=== PATIENT | male | born 1965 | race Caucasian/White ===

== ENCOUNTER → 2016-04-16 | Outpatient (CLI) | payer BC, OTHER ==
--- NOTE | 2016-04-16 11:27 | DIAGNOSTIC IMAGING REPORT ---
RENAL ULTRASOUND HISTORY: CVA TENDERNESS; R/O KIDNEY STONE COMPARISON: None. FINDINGS: Right kidney: 10.1 cm. No hydronephrosis. Normal corticomedullary differentiation and cortical thickness. Left kidney: 12.6 cm. No hydronephrosis. Normal corticomedullary differentiation and cortical thickness. A 6.4 x 5.8 cm renal cyst. Bladder: Not well distended. No bladder wall thickening. Hepatic steatosis. IMPRESSION: 1. No hydronephrosis. 2. A 6.4 x 5.8 cm left renal cyst. 3. Hepatic steatosis. Electronically signed by: Garry Browne M.D. 04/16/2016 11:26 AM Dictated Date/Time: 04/16/2016 11:24 AM
== END | disposition home or self-care (01) ==
LOC: C.ULTRBC 10:35
PROVIDERS: ATTEND Nurse Practitioner Family
DX: M54.9 Dorsalgia, unspecified (principal); N28.1 Cyst of kidney, acquired; K76.0 Fatty (change of) liver, not elsewhere classified

== ENCOUNTER → 2016-04-16 | Outpatient (CLI) | payer BC, OTHER ==
[~2016-04-16] MED LIST: OPTIRAY 320 IV PRN
[2016-04-16 15:17] LABS: BLOOD UREA NITROGEN 15 mg/dl (7-18)
--- NOTE | 2016-04-16 16:02 | DIAGNOSTIC IMAGING REPORT ---
CHEST CTA for PULMONARY ARTERIES CT DOSE: 715.76 mGy.cm HISTORY: Mid back pain. Assess for pulmonary embolus. TECHNIQUE: Multiaxial CT images of the chest were performed following the intravenous administration of contrast to evaluate the pulmonary arteries. Maximal intensity projection images were also obtained. COMPARISON STUDY: None. FINDINGS: There is a normal caliber thoracic aorta with no evidence for dissection. There is no evidence for pulmonary embolus. No pleural effusions. No pneumothorax. The liver and spleen are unremarkable. No mediastinal or hilar lymphadenopathy. The central airways are patent. A few tiny nodular densities along the right major fissure are of doubtful clinical significance. The lungs are otherwise clear. IMPRESSION: No evidence for pulmonary embolus. Electronically signed by: Garry Browne M.D. 04/16/2016 4:01 PM Dictated Date/Time: 04/16/2016 3:51 PM
== END | disposition home or self-care (01) ==
LOC: C.CTS 13:39
PROVIDERS: ATTEND Nurse Practitioner Family
DX: M54.9 Dorsalgia, unspecified (principal)

== ENCOUNTER → 2016-10-22 | Outpatient (CLI) | payer BC, OTHER ==
--- NOTE | 2016-10-22 11:17 | DIAGNOSTIC IMAGING REPORT ---
RENAL ULTRASOUND HISTORY: ACQUIRED RENAL CYST OF LEFT KIDNEY COMPARISON: Renal ultrasound 04/16/2016. FINDINGS: Right kidney: 12.0 cm. No hydronephrosis. Normal corticomedullary differentiation and cortical thickness. Left kidney: 11.8 cm. No hydronephrosis. Normal corticomedullary differentiation and cortical thickness. There is again noted a 6.4 x 5.2 x 5.7 cm cyst within the lower pole. Bladder: No bladder wall thickening. The bilateral ureteral jets were identified. Hepatic steatosis. IMPRESSION: No change from the prior study. Stable 6.4 cm left renal cyst. Electronically signed by: Garry Browne M.D. 10/22/2016 11:16 AM Dictated Date/Time: 10/22/2016 11:13 AM
== END | disposition home or self-care (01) ==
LOC: C.ULTRBC 10:14
PROVIDERS: ATTEND Nurse Practitioner Family
DX: N28.1 Cyst of kidney, acquired (principal)

== ENCOUNTER 2019-09-22 11:55 | Inpatient (IN) ==
[2019-09-22] MEDS ORDERED: ONDANSETRON INJ 2 MG/ML 2 ML VIAL IV PRN (13:29)
[2019-09-22] MEDS ORDERED: TRAMADOL HCL 50 MG TABLET PO PRN (13:29)
[2019-09-22] MEDS ORDERED: PROMETHAZINE HCL 12.5 MG in SODIUM CHLORIDE 0.9% 50 ML IV PRN (13:29)
[2019-09-22] MEDS ORDERED: LORazepam 1 MG/2 ML VIAL IV PRN (13:29)
[2019-09-22] MEDS ORDERED: ONDANSETRON 4 MG OD TAB PO PRN (13:29)
[2019-09-22] MEDS ORDERED: HYDROmorphone INJ 0.5 MG/0.5 ML SYR IV PRN (13:29)
[2019-09-22] MEDS ORDERED: METOCLOPRAMIDE HCL INJ 5 MG/ML 2 ML VIAL IV PRN (13:29)
[2019-09-22] MEDS: HYDROmorphone INJ 1 MG/ML SYRINGE IV PRN ×3 (16:06→21:42)
[2019-09-22 16:20] LABS: Basophils # (auto) 0.02 K/uL (0-0.2); Basophils % (auto) 0.2 %; Eosinophils # (auto) 0.01 K/uL (0-0.5); Eosinophils % (auto) 0.1 %; Hematocrit (blood only) 41.6 % (42-52); Hemoglobin 14.5 g/dL (14.0-18.0); Immature Granulocytes # (auto) 0.33 K/uL (0.00-0.02); Immature Granulocytes % (auto) 2.7 %; Lymphocytes # (auto) 1.36 K/uL (1.2-3.4); Mean Corpuscular Hemoglobin 30.6 pg (25-34); Mean Corpuscular Hgb Conc 34.9 g/dL (32-36); Mean Corpuscular Volume 87.8 fL (80-100); Monocytes # (auto) 1.54 K/uL (0.11-0.59); Monocytes % (auto) 12.5 %; Neutrophils # (auto) 9.06 K/uL (1.4-6.5); Neutrophils % (auto) 73.5 %; Platelet Count 191 K/uL (130-400); RDW Coefficient of Variation 13.3 % (11.5-14.5); RDW Standard Deviation 42.9 fL (36.4-46.3); Red Blood Count 4.74 M/uL (4.7-6.1); White Blood Count 12.32 K/uL (4.8-10.8)
[2019-09-22 16:38] LABS: Alanine Aminotransferase 30 U/L (12-78); Albumin Level 3.7 gm/dl (3.4-5.0); Aspartate Aminotransferase 18 U/L (15-37); BUN Creatinine Ratio 15.9 (10-20); Blood Urea Nitrogen 19 mg/dl (7-18); Calcium 8.7 mg/dl (8.5-10.1); Carbon Dioxide 27 mmol/L (21-32); Chloride 106 mmol/L (98-107); Est GFR (African American) 76.9; Est GFR (Non-African American) 66.3; Glucose 206 mg/dl (70-99); Potassium 3.8 mmol/L (3.5-5.1); Sodium 139 mmol/L (136-145)
[2019-09-22 16:41] LABS: Albumin Globulin Ratio 1.1 (0.9-2); Alkaline Phosphatase 75 U/L (45-117); Bilirubin,Total 0.4 mg/dl (0.2-1); Globulin 3.5 gm/dl (2.5-4.0); Total Protein 7.2 gm/dl (6.4-8.2)
[2019-09-22] MEDS: LACTATED RINGER'S 1,000 ML IV SCH (16:49)
--- NOTE | 2019-09-22 16:51 | XRay Report ---
XR chest 2V PA/lateral CLINICAL HISTORY: Preop COMPARISON STUDY: CT scan dated March 2016 FINDINGS: The cardiac and mediastinal contours are normal. There is no evidence of focal pulmonary co nsolidation. There is no evidence of failure. No pleural effusions are visualized.[ IMPRESSION: No active disease in the chest. ACT 112: Negative or not required by law. Electronically signed by: Caio Long M.D. 09/22/2019 4:50 PM
--- NOTE | 2019-09-22 17:26 | History & Physical Report ---
Date of Service September 22, 2019 Assessment & Plan (1) Lumbar disc herniation with radiculopathy: This time the patient is in obvious distress has gross strength deficits severe pain and inability to sleep. He also has a history of significant persistent chronic back and bilateral buttock pain. In length discussion today with the patient and his reviewing his MRI findings and clinical presentation. This time he would require a lumbar decompression and fusion at L3-4. It would require complete facetectomy at L3-4 to adequately and safely access the compressed L3 nerve root on the left. This creates instability and subsequent fusion. He also has chronic persistent back and buttock pain secondary to the spinal listhesis L5-S1 and and I would subsequently address this issue as well. I would recommend fusion stabilization of the intervening 4 5 level. Patient stands and agrees he would like to proceed with surgery. Risk benefits pros cons and alternatives were outlined in detail. Risk include but not limited to from anesthesia blindness stroke paralysis nerve damage blood loss requiring transfusion infection requiring operation benefits of being marked improvement of his leg pain and back symptoms. We will make him n.p.o. after midnight tonight and plan for urgent surgery tomorrow in light of his neurologic decline. Present on Admission?: Yes History of Present Illness Chief Complaint: Acute on chronic back and leg pain Primary Care Provider: Cory Shore This is a 53-year-old male that has a history of spinal listhesis L5-S1 in the back and bilateral buttock pain that is been limiting him over the past several years. Unfortunately approximately 7 days ago he had the onset of severe left leg pain involving left buttock anterior thigh extending to the knee. It was incapacitating nature requiring 2 visits to the emergency room. Oral steroids IV narcotics and IV steroids provided little to no relief. Is been unable to sleep. He notes significant strength deficits to the left leg particularly with walking ascending and descending stairs. Denies any loss of bowel bladder control. Allergies Allergy/AdvReac Type Severity Reaction Status Date / Time No Known Allergies Allergy Unverified 09/19/19 12:34 Home Medications Home Medications Medication Instructions Recorded Confirmed Type atorvastatin 10 mg PO DAILY 09/19/19 09/19/19 History cholecalciferol (vitamin D3) 25 mcg PO DAILY 09/19/19 09/19/19 History [Vitamin D3] levothyroxine 100 mcg PO DAILY 09/19/19 09/19/19 History metformin 1,000 mg PO BID 09/19/19 09/19/19 History oxycodone 10 mg PO Q8H PRN #15 tab 09/19/19 Rx oxycodone 10 mg PO TID PRN 09/19/19 09/19/19 History prednisone 40 mg PO DAILY #10 tab 09/19/19 Rx zolpidem [Ambien] 5 mg PO HS PRN 09/19/19 09/19/19 History Past Med/Surg History Medical History (Updated 09/22/19 @ 17:24 by Jay Suggs DO) Diabetes Surgical History (Updated 09/19/19 @ 15:09 by Edy Jurado DO) History of appendectomy History of tonsillectomy Social History Smoking Status: Never smoker Second Hand Exposure: No; Do You Dip or Chew Tobacco: No; Hx Substance Use: No Preferred Language: Czech Communication Ability: Effective Drafting Technician Required: No Beliefs That Will Affect Care: None Current Living Situation: Significant Other Feels Safe at Home: Yes Physical Exam Physical Exam: On exam he is in obvious distress. He has difficulty staying still secondary to pain. Deep tendon reflexes are absent to the left patella. There is no evidence of clonus. Results & Data Vital Signs (Past 12 Hours) Vital Signs Temp Pulse Resp BP Pulse Ox 09/22/19 15:43 36.9 C 71 17 161/80 H 94 Diagnostic Findings MRI lumbar spine [facility] available for review demonstrates a far lateral disc herniation occupying the foramen of L3-4 on the left there is significant displacement of the exiting L3 nerve root on the left. There is evidence of spondylolisthesis grade 1 at L5-S1 with severe bilateral neuroforaminal stenosis. Code Status & VTE Plan VTE Prophylaxis Plan VTE Prophylaxis will be ordered: Yes
--- NOTE | 2019-09-22 17:38 | Anesthesiology Consultation ---
Date of Service September 22, 2019 Assessment & Plan (1) Encounter for pre-operative examination: Chart Review Chart Review: Acceptable Risk for Surgery and Patient NOT seen in Pre Admission Testing Consults Requested none Additional Notes Order placed for preoperative EKG to be done in the morning. No COVID testing performed - will need to be assessed by the anesthesia team tomorrow. History Surgery Operation Date: 09/23/19 13:45 Proposed Procedures p L3-L4 Decompression and Fusion with Instrumentation - Jay Suggs DO Height/Weight Height: 6 ft 3 in Weight: 255 kg Allergies Allergy/AdvReac Type Severity Reaction Status Date / Time No Known Allergies Allergy Unverified 09/19/19 12:34 Medications Home Medications Medication Instructions Recorded Confirmed Last Taken atorvastatin 10 mg PO DAILY 09/19/19 09/22/19 09/22/19 08:00 cholecalciferol (vitamin D3) 25 mcg PO DAILY 09/19/19 09/22/19 09/22/19 08:00 [Vitamin D3] levothyroxine 100 mcg PO DAILY 09/19/19 09/22/19 09/22/19 08:00 metformin 1,000 mg PO BID 09/19/19 09/19/19 09/22/19 08:00 oxycodone 10 mg PO Q8H PRN #15 tab 09/19/19 Unknown oxycodone 10 mg PO TID PRN 09/19/19 09/19/19 Unknown prednisone 40 mg PO DAILY #10 tab 09/19/19 09/22/19 09/22/19 08:00 zolpidem [Ambien] 5 mg PO HS PRN 09/19/19 09/19/19 Unknown cetirizine 10 mg PO DAILY 09/22/19 09/22/19 09/22/19 08:00 omeprazole 40 mg PO DAILY 09/22/19 09/22/19 09/22/19 08:00 Active Medications Generic Name Dose Route Start Last Admin Trade Name Freq PRN Reason Stop Dose Admin Hydromorphone HCl 1 mg 09/22/19 13:29 09/22/19 19:06 Dilaudid IV 10/06/19 13:28 1 mg Q3H PRN Administration severe pain (scale 7-10) Lactated Ringer's 1,000 mls @ 75 mls/hr 09/22/19 13:30 09/22/19 16:49 Lr IV 10/22/19 13:29 75 mls/hr .[id number] WALKER Administration Insulin Aspart 0 units 09/22/19 19:15 09/22/19 19:34 Novolog Flexpen SC 10/22/19 19:14 Not Given ACHS WALKER Oxycodone HCl 5 - 10 mg 09/22/19 13:29 09/22/19 18:03 Roxicodone Immediate Rel PO 10/06/19 13:28 10 mg Q4H PRN Administration Moderate-Severe Pain Past Medical History Medical History Diabetes Past Surgical History Surgical History History of appendectomy History of tonsillectomy Social History Smoking Status: Never smoker Do You Dip or Chew Tobacco: No Alcohol type: beer alcohol intake frequency: a few times a week Hx Substance Use: No Physical Exam Vital Signs Last Vital Signs Temp 36.9 C 09/22/19 15:43 Pulse 71 09/22/19 15:43 Resp 17 09/22/19 15:43 BP 161/80 H 09/22/19 15:43 Pulse Ox 94 09/22/19 15:43 Testing Laboratory Results 09/22/19 16:09 09/22/19 16:09
[2019-09-22] MEDS: OXYCODONE HCL IR 5 MG TAB (IMMEDIATE RELEASE) PO PRN ×2 (18:03→23:19)
[2019-09-22] MEDS ORDERED: PHARMACY GLYCEMIC MGMT CONSULT PRN (18:41)
[2019-09-22] MEDS ORDERED: Nursing to Pharmacy Communication SCH (18:45)
[2019-09-22] MEDS ORDERED: GLUCOSE 40% GEL 15 GM TUBE PO PRN (19:00)
[2019-09-22] MEDS ORDERED: GLUCOSE 10 TABS/TUBE PO PRN (19:00)
[2019-09-22] MEDS ORDERED: GLUCAGON FOR INJ 1 MG VIAL IM PRN (19:00)
[2019-09-22] MEDS ORDERED: DEXTROSE 50% 50 ML SYRINGE IV PRN (19:00)
[2019-09-22] MEDS ORDERED: CARBOHYDRATES FOR HYPOGLYCEMIA PO PRN (19:00)
[2019-09-22] MEDS ORDERED: INSULIN HUMAN NPH SC ONE (19:15)
[2019-09-22] MEDS: INSULIN ASPART 100 UNITS/ML 3 ML PEN SC SCH ×2 (19:34→21:17)
[2019-09-22] MEDS: DOCUSATE SODIUM 100 MG CAP PO SCH (21:17)
[2019-09-22] MEDS: LORazepam 1 MG TAB PO PRN (23:18)
[2019-09-23] MEDS: HYDROmorphone INJ 1 MG/ML SYRINGE IV PRN ×5 (01:01→21:11)
[2019-09-23] MEDS: LACTATED RINGER'S 1,000 ML IV SCH ×2 (04:47→18:32)
[2019-09-23] MEDS: LEVOTHYROXINE SODIUM 100 MCG TABLET PO SCH (04:49)
[2019-09-23] MEDS ORDERED: Nursing to Pharmacy Communication SCH (05:00)
[2019-09-23] MEDS ORDERED: CEFAZOLIN 2000MG 2,000 MG/15 ML SYR IV SCH (06:00)
[2019-09-23] MEDS: INSULIN ASPART 100 UNITS/ML 3 ML PEN SC SCH ×4 (06:06→21:12)
[2019-09-23] MEDS: OXYCODONE HCL IR 5 MG TAB (IMMEDIATE RELEASE) PO PRN (06:10)
[2019-09-23] MEDS: LORazepam 1 MG TAB PO PRN (06:10)
[2019-09-23] MEDS: DOCUSATE SODIUM 100 MG CAP PO SCH ×2 (11:16→21:13)
--- NOTE | 2019-09-23 11:33 | History & Physical Bridge Note ---
Date of Service September 23, 2019 History & Physical Bridge Note I have examined the patient, reviewed the History & Physical and in the interval since the performance of the History & Physical I have noted the following changes of clinical significance: Plan is lumbar decompression fusion L3-4, L4-5 and L5-S1.
--- NOTE | 2019-09-23 12:45 | Pharmacy Report ---
Pharmacy Glycemic Short Note 2 - Date of Service September 23, 2019 - Glycemic Short BSG Results (Last 24 hours): 09/22/19 09/22/19 09/23/19 16:09 20:31 06:02 Glucose 206 H POC Glucose 187 H 88 09/23/19 12:00 Glucose POC Glucose 93 OUTPATIENT ANTIDIABETIC REGIMEN: * Metformin 1gm PO BID * A1c = ? ASSESSMENT: * BSGs today less than 100 x 2 (88, 93) - these are fasting BSGs as pt is NPO for lumbar decompression/fusion today * No further steroids have been ordered * Unlikely that basal insulin will be required - unless steroids administered nyla-op today - will monitor nyla-op orders. Will check A1c as this will shed light upon patient's potential need for basal insulin. PLAN FOR INPATIENT GLYCEMIC CONTROL: * Hold outpatient oral diabetes medications (metformin) * Basal insulin * none at this time * Bolus insulin * NovoLog per scale ACHS or Q6hrs while NPO * Goal Range: Low 110 mg/dL - High 140 mg/dL * Correction Factor: 20 mg/dL/unit * Nutritional / Prandial insulin per carb ratio of 1 unit per 7 grams CHO consumed PLAN FOR DISCHARGE: * to be determined
[2019-09-23] MEDS ORDERED: ONDANSETRON INJ 2 MG/ML 2 ML VIAL ONE ×2 (13:24→16:22)
[2019-09-23] MEDS ORDERED: HYDROmorphone INJ 2 MG/ML SYR/VIAL ONE (13:24)
[2019-09-23] MEDS ORDERED: DEXAMETHASONE SOD INJ 4 MG/ML VIAL ONE ×2 (13:24→14:59)
[2019-09-23] MEDS ORDERED: MIDAZOLAM HCL 1 MG/ML 2ML VIAL ONE ×2 (13:24→14:17)
[2019-09-23] MEDS ORDERED: LIDOCAINE HCL 2% 2 ML VIAL/AMP(20MG/ML) INFIL ONE (13:24)
[2019-09-23] MEDS ORDERED: PROPOFOL IV EMULSION 10 MG/ML 20 ML VIAL IV ONE (13:24)
[2019-09-23] MEDS ORDERED: fentaNYL citrate 100 MCG/2 ML VIAL ONE ×3 (13:24→17:20)
[2019-09-23] MEDS ORDERED: SODIUM CHLORIDE 0.9% INJ 10 ML VIAL ONE (13:24)
[2019-09-23] MEDS ORDERED: NEOSTIGMINE METHYLSULFATE 5 MG/5 ML SYR ONE (13:24)
[2019-09-23] MEDS ORDERED: GLYCOPYRROLATE 0.2 MG/ML VIAL ONE ×2 (13:24→16:22)
[2019-09-23] MEDS ORDERED: MoRPHine SULFATE 2 MG/ML CARP ONE ×2 (13:30→13:34)
[2019-09-23] MEDS ORDERED: MoRPHine SULFATE 4 MG/ML 1 ML CARP\\VIAL IV STA (13:30)
[2019-09-23] MEDS ORDERED: BACITRACIN INJ 50,000 UNIT VIAL ONE (13:31)
[2019-09-23] MEDS ORDERED: BUPIVACAINE/EPINEPHRINE 0.5% MPF 1:200,000 10 ML VIAL ONE (13:32)
[2019-09-23 14:33] LABS: Estimated Average Glucose 151 mg/dl; Hemoglobin A1C 6.9 % (4.5-5.6)
[2019-09-23] MEDS ORDERED: ALBUMIN HUMAN 5% 12.5 GM/250 ML VIAL IV ONE (15:03)
[2019-09-23] MEDS ORDERED: DexMEDEtomidine HCL IV 100 MCG/ML VIAL ONE (15:03)
[2019-09-23] MEDS ORDERED: FLOSEAL HEMOSTATIC MATRIX 10ML TOP ONE (16:20)
[2019-09-23] MEDS ORDERED: ROCURONIUM BROMIDE 10 MG/ML 5 ML VIAL IV ONE (16:22)
--- NOTE | 2019-09-23 16:35 | Operative Report ---
Post Operative Report Pre & Post Diagnosis Operation Date: 09/23/19 13:45 Pre-Op Diagnosis: Spinal stenosis, Lumbar disc herniation with radiculopathy L3-S1 Post-Op Diagnosis: Spinal stenosis, Lumbar disc herniation with radiculopathy L3-S1 I identified the patient and participated in the time-out.: Yes Procedure Operation Date: 09/23/19 13:45 Actual Procedures #1 lumbar decompression with bilateral medial facetectomies and foraminotomies L4-5 and L5-S1. #2 far lateral discectomy L3-4 on the left. #3 posterior spinal fusion L5-S1. #4 placement posterior instrumentation L5-S1. #5 interbody fusion L5-S1 peer #6 placement peek cage 10 x 26 mm at L5-S1. #7 placement infuse collagen sponge, master graft in the posterior lateral gutters and ostial amp interbody space. #8 placement of locally harvested morselized autograft in the posterior lateral gutters. Surgeon Jay Suggs, DO Criminal Defense Lawyer Kay Martinez Estimated Blood Loss 400 Findings See Below Patient is 6 foot 3 inches tall weighing over 115 kg with a BMI in excess of 31. The patient's body habitus did add significant technical difficulty throughout the procedure requiring her deepest retractors and longus instruments in order to perform his surgery. This at least 25% increase to the operative time. Specimens None Indications This is a 53-year-old male who presents with marked decline in status with leg weakness and pain is here for urgent surgical intervention. Description of Procedure Patient was met with identified informed consent obtained. Patient was then taken to the operative suite underwent intubation placed in a prone position the Roddy table on top of the Edgardo frame. All bony prominences well-padded eyes inspected to ensure no external pressure placed upon them. This point the lumbar spine was prepped and draped in a sterile fashion. Sharp dissection with the assistance pericardial performed down to and exposing the left sided L3 and L4 transverse processes and the lamina and transverse processes of L5 and S1 bilaterally. I then proceeded to perform a far lateral discectomy at L3-4 on the left. I removed a small portion of the lateral facet expose the transverse ligament dissected the ligament to expose a severely compressed exiting L3 nerve root on the left. Was able remove several massive fragments of disc material underneath the nerve root for complete decompression. Then proceeded to complete decompression of L5 and partial laminectomy of L4 including bilateral medial facetectomies and foraminotomies. Obvious but lateral pars defect of L5 was appreciated. There is severe neural foraminal disease. Pedicle screws were then placed in L5 and S1 levels bilaterally with assistance of fluoroscopy and appropriate size sol placed. By way of a trans-foraminal approach on the right a complete discectomy was performed endplates coated to subcortical bleeding bone and a 10 x 26 mm peek cage filled osteo-bone graft tapped in position. The rods and locked in final position bilaterally. The transverse processes of L5 and sacral ala burred to subcortical bleeding bone. Infuse collagen sponge mass graft local autograft was then placed in the posterior lateral gutters. 15 round TOMMY drain inserted. The incision was then closed with 1 Vicryl the fascia 2-0 Vicryl subcutaneously and 4 Monocryl for final skin closure. Steri-Strip sterile dressings placed. Patient waken taken PACU stable condition. Please note spinal cord monitoring was utilized that the procedure no changes noted. Lastly Kay Martinez was present at the entire procedure involved the patient positioning complex portions of the surgery and final skin closure. I attest to the content of the Intraoperative Record and any orders documented therein. Any exceptions are noted below.
--- NOTE | 2019-09-23 16:52 | Fluoroscopy Report ---
FL lumbar spine 2-3V CLINICAL HISTORY: DECOMPRESSION AND FUSION COMPARISON STUDY: Lumbar spine MRI September 19, 2019. FLUOROSCOPY TIME: 28 seconds. FLUOROSCOPIC IMAGES: 2 FINDINGS: Fluoroscopy was provided for L5-S1 discectomy. Posterior decompression is noted. Bilateral pedicle screws at the L5 and S1 levels are noted with interconnecting rods. Hardware is intact. IMPRESSION: Fluoroscopy provided L5-S1 discectomy, posterior decompression and bilateral pedicle scr ew fusion. ACT 112: Negative or not required by law. Electronically signed by: Justino Campos M.D. 09/23/2019 4:51 PM
[2019-09-23] MEDS ORDERED: METFORMIN HCL 500 MG TAB PO SCH (17:00)
[2019-09-23] MEDS ORDERED: LABETALOL HCL IV 5 MG/ML 20ML IV PRN (17:18)
[2019-09-23] MEDS ORDERED: ePHEDrine sulfate 50 MG/ML AMP IV PRN (17:18)
[2019-09-23] MEDS ORDERED: PHENYLEPHRINE 100MCG/ML 5ML SYR IV PRN (17:18)
[2019-09-23] MEDS ORDERED: ATROPINE SULFATE 0.1 MG/ML 10ML SYR IV PRN (17:18)
[2019-09-23] MEDS ORDERED: fentaNYL citrate 100 MCG/2 ML VIAL IV PRN (17:18)
[2019-09-23] MEDS ORDERED: ONDANSETRON INJ 2 MG/ML 2 ML VIAL IV PRN ×2 (17:18→17:49)
[2019-09-23] MEDS ORDERED: HYDROmorphone INJ 1 MG/ML SYRINGE IV PRN (17:18)
--- NOTE | 2019-09-23 17:35 | Anesthesiology Progress Note ---
Date of Service September 23, 2019 Anesthesia Post Procedure Vital Signs Vital Signs: Temp Pulse Pulse Resp BP Pulse Ox 09/23/19 17:30 36.6 C 80 14 154/92 H 98 09/23/19 17:20 65 14 155/93 H 100 09/23/19 17:10 67 14 153/93 H 100 09/23/19 17:00 65 14 151/88 H 98 09/23/19 16:54 36.4 C L 70 14 154/96 H 97 09/23/19 12:34 36.6 C 60 18 133/97 93 09/23/19 06:51 36.4 C L 64 19 128/80 95 09/22/19 23:57 36.5 C 78 18 160/82 H 97 Pain Intensity Bilateral Back: Pain Intensity: 2 Transfer of Care Handoff Completed per policy Notes Mental Status: alert / awake / arousable Patient Amnestic to Procedure: Yes Nausea / Vomiting: adequately controlled Pain: adequately controlled Airway Patency, RR, SpO2: stable & adequate BP & HR: stable & adequate Hydration State: stable & adequate Anesthetic Complications: no major complications apparent and Pt Satisfied with anesthetic care
[2019-09-23] MEDS ORDERED: INSULIN HUMAN NPH SC ONE ×3 (17:45→18:30)
[2019-09-23] MEDS ORDERED: ACETAMINOPHEN 500 MG TAB PO PRN (17:49)
[2019-09-23] MEDS ORDERED: LORazepam 0.5 MG/1 ML VIAL IV PRN (17:49)
[2019-09-23] MEDS ORDERED: bisacodyL 10 MG SUPP PR PRN (17:49)
[2019-09-23] MEDS ORDERED: DO NOT ADMINISTER PNEUMOCOCCAL VACCINE PRN (17:49)
[2019-09-23] MEDS ORDERED: PROMETHAZINE HCL 12.5 MG in SODIUM CHLORIDE 0.9% 50 ML IV PRN (17:49)
[2019-09-23] MEDS ORDERED: METOCLOPRAMIDE HCL INJ 5 MG/ML 2 ML VIAL IV PRN (17:49)
[2019-09-23] MEDS ORDERED: NALOXONE HCL 0.4 MG/1 ML VIAL/CARP IV PRN (17:49)
[2019-09-23] MEDS ORDERED: ACETAMINOPHEN 1,000 MG/100 ML VIAL IV PRN (17:49)
[2019-09-23] MEDS ORDERED: DO NOT ADMINISTER FLU VACCINE PRN (17:49)
[2019-09-23] MEDS ORDERED: LORazepam 0.5 MG TAB PO PRN (17:49)
[2019-09-23] MEDS ORDERED: FAMOTIDINE 20 MG TAB PO PRN (17:49)
[2019-09-23] MEDS ORDERED: ONDANSETRON 4 MG OD TAB PO PRN (17:49)
[2019-09-23] MEDS ORDERED: MAGNESIUM HYDROXIDE SUSP 30 ML UDC PO PRN (17:49)
[2019-09-23] MEDS ORDERED: SOD PHOSPHATE/SOD BIPHOSPHATE ENEMA 132 ML BTL PR PRN (17:49)
[2019-09-23] MEDS ORDERED: ALUMINUM/MAGNESIUM SUSP 30 ML UDC PO PRN (17:49)
[2019-09-23] MEDS: ATORVASTATIN 10 MG TAB PO SCH (18:07)
[2019-09-23] MEDS: PANTOprazole 40 MG TAB PO SCH (18:07)
[2019-09-23] MEDS: SODIUM CHLORIDE 0.9% 1000ML 1,000 ML IV SCH ×2 (18:32→23:55)
[2019-09-23] MEDS: KETOROLAC 30 MG/ML VIAL IV SCH ×2 (20:05→23:58)
[2019-09-23] MEDS ORDERED: INSULIN GLARGINE SOLOSTAR 100 UNITS/ML 3 ML PEN SC SCH (21:00)
[2019-09-23] MEDS: CEFAZOLIN 2000MG 2,000 MG/15 ML SYR IV SCH (21:08)
[2019-09-23] MEDS: DOCUSATE SODIUM/SENNA 50/8.6MG TAB PO SCH (21:14)
[2019-09-24] MEDS: INSULIN ASPART 100 UNITS/ML 3 ML PEN SC SCH ×7 (00:01→20:59)
[2019-09-24] MEDS ORDERED: INSULIN ASPART 100 UNITS/ML 3 ML PEN SC SCH (04:00)
[2019-09-24] MEDS: CEFAZOLIN 2000MG 2,000 MG/15 ML SYR IV SCH (04:49)
[2019-09-24] MEDS: POLYETHYLENE (MIRALAX) 17 GM PACK PO SCH ×4 (04:50→23:58)
[2019-09-24] MEDS: KETOROLAC 30 MG/ML VIAL IV SCH ×2 (04:50→12:47)
[2019-09-24] MEDS: LEVOTHYROXINE SODIUM 100 MCG TABLET PO SCH (04:52)
[2019-09-24 06:13] LABS: Hematocrit (blood only) 37.4 % (42-52); Hemoglobin 12.9 g/dL (14.0-18.0); Mean Corpuscular Hemoglobin 30.4 pg (25-34); Mean Corpuscular Hgb Conc 34.5 g/dL (32-36); Mean Platelet Volume 10.7 fL (7.4-10.4); Platelet Count 184 K/uL (130-400); RDW Coefficient of Variation 13.5 % (11.5-14.5); RDW Standard Deviation 43.4 fL (36.4-46.3); Red Blood Count 4.25 M/uL (4.7-6.1); White Blood Count 18.93 K/uL (4.8-10.8)
[2019-09-24] MEDS: OXYCODONE HCL IR 5 MG TAB (IMMEDIATE RELEASE) PO PRN ×3 (06:19→23:57)
[2019-09-24 06:44] LABS: Basophils # (auto) 0.01 K/uL (0-0.2); Basophils % (auto) 0.1 %; Eosinophils # (auto) 0.01 K/uL (0-0.5); Eosinophils % (auto) 0.1 %; Immature Granulocytes % (auto) 1.1 %; Lymphocytes # (auto) 2.34 K/uL (1.2-3.4); Lymphocytes % (auto) 12.4 %; Monocytes # (auto) 1.32 K/uL (0.11-0.59); Neutrophils # (auto) 15.05 K/uL (1.4-6.5); Neutrophils % (auto) 79.3 %
[2019-09-24 07:01] LABS: BUN Creatinine Ratio 18.4 (10-20); Calcium 7.6 mg/dl (8.5-10.1); Creatinine Clr Calc Pharmacy 104.2 ml/min; Est GFR (African American) 87.1; Est GFR (Non-African American) 75.2; Potassium 4.1 mmol/L (3.5-5.1)
--- NOTE | 2019-09-24 08:22 | Orthopedic Progress Note ---
Date of Service September 24, 2019 Assessment & Plan (1) Lumbar disc herniation with radiculopathy: This time we will continue physical therapy monitor his TOMMY output hopefully discharge home in the next few days. Present on Admission?: Yes Admission and Anticipated Discharge Date Admission Date: September 22, 2019 Subjective Back pain controlled leg symptoms Physical Exam Physical Exam: Patient is good strength testing appears comfortable. Results & Data ([facility]) Vital Signs (Past 12 Hours) Vital Signs Temp Pulse Pulse Resp BP Pulse Ox 09/24/19 07:11 37.1 C 74 18 118/78 92 09/24/19 03:50 37.2 C 84 18 114/72 95 09/23/19 23:15 36.9 C 92 H 18 118/70 97 09/23/19 20:48 36.8 C 105 H 16 112/61 92
[2019-09-24] MEDS ORDERED: DEXAMETHASONE SOD PHOSPHATE 8 MG in SYRINGE 0 ML IV SCH (09:00)
[2019-09-24] MEDS ORDERED: LEVOTHYROXINE SODIUM 100 MCG TABLET PO SCH (09:00)
[2019-09-24] MEDS ORDERED: NON-FORMULARY MEDICATION (Omeprazole 40 MG) PO SCH (09:00)
[2019-09-24] MEDS ORDERED: ATORVASTATIN 10 MG TAB PO SCH (09:00)
--- NOTE | 2019-09-24 09:19 | Electrocardiogram Report ---
Test Reason : Blood Pressure : / mmHG Vent. Rate : 062 BPM Atrial Rate : 062 BPM P-R Int : 146 ms QRS Dur : 090 ms QT Int : 404 ms P-R-T Axes : 020 -02 -21 degrees QTc Int : 410 ms Normal sinus rhythm Nonspecific T wave abnormality Abnormal ECG No previous ECGs available Confirmed by Manoj Tilley ([id number]) on 09/24/2019 9:19:34 AM Referred By: Jay Suggs Confirmed By:Manoj Tilley
[2019-09-24] MEDS: INSULIN HUMAN NPH SC SCH (09:47)
[2019-09-24] MEDS: CHOLECALCIFEROL 1,000 UNITS 25 MCG TAB PO SCH (09:48)
[2019-09-24] MEDS: CETIRIZINE HCL 10 MG TABLET PO SCH (09:48)
[2019-09-24] MEDS: ATORVASTATIN 10 MG TAB PO SCH (09:48)
[2019-09-24] MEDS: PANTOprazole 40 MG TAB PO SCH (09:48)
[2019-09-24] MEDS: DOCUSATE SODIUM 100 MG CAP PO SCH ×2 (09:48→21:07)
[2019-09-24] MEDS: DEXAMETHASONE SOD PHOSPHATE 8 MG in SYRINGE 0 ML IV SCH (09:49)
--- NOTE | 2019-09-24 13:50 | Pharmacy Report ---
Pharmacy Glycemic Short Note 2 - Date of Service September 24, 2019 - Glycemic Short BSG Results (Last 24 hours): 09/23/19 09/23/19 09/23/19 15:16 16:55 18:13 Glucose POC Glucose 117 H 131 H 190 H 09/23/19 09/23/19 09/24/19 20:33 23:46 04:21 Glucose POC Glucose 236 H 141 H 165 H 09/24/19 09/24/19 09/24/19 05:58 08:24 11:43 Glucose 141 H POC Glucose 112 H 169 H OUTPATIENT ANTIDIABETIC REGIMEN: * Metformin 1gm PO BID * A1c = 6.9% 09/22/19 ASSESSMENT: * BSGs did climb post-op yesterday. Of note, pt appears to have received dexamethasone IV in the OR yesterday. NPH doses have been administered on two occasions to counter the hyperglycemic effects of dexamethasone with fairly good responses. Will continue to do the same however will dose NPH BID at this time as pt is now scheduled dexamethasone 8mg IV daily. Given dexamethasone's prolonged duration of effects, once daily NPH may not adequately prevent hyperglycemia * Aggressive Novolog doses will continue while on current steroid dose. Will give larger prandial insulin doses now that steroid is timed to begin each AM - thus potentiating post-prandial BSG rise. PLAN FOR INPATIENT GLYCEMIC CONTROL: * Hold outpatient oral diabetes medications (metformin) * Basal insulin * NPH 25 units Q AM (with breakfast) + 10 units Q PM (with evening meal) * Bolus insulin * NovoLog per scale ACHS or Q6hrs while NPO * Goal Range: Low 110 mg/dL - High 140 mg/dL * Correction Factor: 15 mg/dL/unit * Nutritional / Prandial insulin per carb ratio of 1 unit per 4 grams CHO consumed * Reassess insulin needs with each step down in steroid dose PLAN FOR DISCHARGE: * may resume outpt regimen of metformin if no contraindications present
[2019-09-24] MEDS ORDERED: INSULIN HUMAN NPH SC SCH (16:30)
[2019-09-24] MEDS: ACETAMINOPHEN 500 MG TAB PO PRN (19:55)
[2019-09-24] MEDS: DOCUSATE SODIUM/SENNA 50/8.6MG TAB PO SCH (21:07)
[2019-09-25] MEDS: LEVOTHYROXINE SODIUM 100 MCG TABLET PO SCH (05:31)
[2019-09-25] MEDS: POLYETHYLENE (MIRALAX) 17 GM PACK PO SCH ×4 (05:31→23:32)
[2019-09-25] MEDS: OXYCODONE HCL IR 5 MG TAB (IMMEDIATE RELEASE) PO PRN ×2 (07:00→14:11)
[2019-09-25] MEDS: CHOLECALCIFEROL 1,000 UNITS 25 MCG TAB PO SCH (09:45)
[2019-09-25] MEDS: DOCUSATE SODIUM 100 MG CAP PO SCH ×2 (09:45→21:08)
[2019-09-25] MEDS: DEXAMETHASONE SOD PHOSPHATE 8 MG in SYRINGE 0 ML IV SCH (09:45)
[2019-09-25] MEDS: PANTOprazole 40 MG TAB PO SCH (09:45)
[2019-09-25] MEDS: CETIRIZINE HCL 10 MG TABLET PO SCH (09:45)
[2019-09-25] MEDS: ATORVASTATIN 10 MG TAB PO SCH (09:45)
[2019-09-25] MEDS: INSULIN ASPART 100 UNITS/ML 3 ML PEN SC SCH ×4 (09:47→21:09)
[2019-09-25] MEDS: INSULIN HUMAN NPH SC SCH (09:47)
--- NOTE | 2019-09-25 10:08 | Pharmacy Report ---
Pharmacy Glycemic Short Note 2 - Date of Service September 25, 2019 - Glycemic Short BSG Results (Last 24 hours): 09/24/19 09/24/19 09/24/19 11:43 16:51 20:14 POC Glucose 169 H 161 H 116 H OUTPATIENT ANTIDIABETIC REGIMEN: * Metformin 1gm PO BID * A1c = 6.9% 09/22/19 ASSESSMENT: * BSGs well-controlled yesterday ranging 112-169 mg/dL * Patient received 80 units of insulin (35 units of basal, 45 units of prandial/correctional) * Continues on dexamethasone 8 mg IV daily * Fasting BSG of 101 mg/dL this morning - will utilize NPH scale this evening PLAN FOR INPATIENT GLYCEMIC CONTROL: * Hold outpatient oral diabetes medications (metformin) * Basal insulin - consider discontinuing evening NPH * NPH 25 units Q AM (with breakfast) + NPH scale at dinner (0-10 units, see EHR for details) * Bolus insulin - continue * NovoLog per scale ACHS or Q6hrs while NPO * Goal Range: Low 110 mg/dL - High 140 mg/dL * Correction Factor: 15 mg/dL/unit * Nutritional / Prandial insulin per carb ratio of 1 unit per 4 grams CHO consumed * Reassess insulin needs with each step down in steroid dose PLAN FOR DISCHARGE: * may resume outpt regimen of metformin if no contraindications present
--- NOTE | 2019-09-25 12:20 | Orthopedic Progress Note ---
Date of Service September 25, 2019 Assessment & Plan (1) Lumbar disc herniation with radiculopathy: This time continue physical therapy monitor his TOMMY output anticipate discharge home this weekend. Present on Admission?: Yes Admission and Anticipated Discharge Date Admission Date: September 22, 2019 Subjective Patient's back pain is controlled leg symptoms markedly improved. Physical Exam Physical Exam: On exam he has good strength testing appears comfortable. Results & Data ([facility]) Vital Signs (Past 12 Hours) Vital Signs Temp Pulse Resp BP Pulse Ox 09/25/19 07:17 36.7 C 67 19 121/82 97
[2019-09-25] MEDS: ACETAMINOPHEN 500 MG TAB PO PRN (14:13)
[2019-09-25] MEDS ORDERED: INSULIN HUMAN NPH SC SCH (16:30)
[2019-09-25] MEDS: DOCUSATE SODIUM/SENNA 50/8.6MG TAB PO SCH (21:08)
[2019-09-26] MEDS: ACETAMINOPHEN 500 MG TAB PO PRN (04:20)
[2019-09-26] MEDS: OXYCODONE HCL IR 5 MG TAB (IMMEDIATE RELEASE) PO PRN ×3 (04:20→12:14)
[2019-09-26] MEDS: LEVOTHYROXINE SODIUM 100 MCG TABLET PO SCH (04:21)
[2019-09-26] MEDS: POLYETHYLENE (MIRALAX) 17 GM PACK PO SCH ×2 (04:21→12:15)
[2019-09-26] MEDS: DOCUSATE SODIUM 100 MG CAP PO SCH (08:00)
[2019-09-26] MEDS: DEXAMETHASONE SOD PHOSPHATE 8 MG in SYRINGE 0 ML IV SCH (08:00)
[2019-09-26] MEDS: CETIRIZINE HCL 10 MG TABLET PO SCH (08:00)
[2019-09-26] MEDS: ATORVASTATIN 10 MG TAB PO SCH (08:00)
[2019-09-26] MEDS: CHOLECALCIFEROL 1,000 UNITS 25 MCG TAB PO SCH (08:00)
[2019-09-26] MEDS: PANTOprazole 40 MG TAB PO SCH (08:01)
[2019-09-26] MEDS: INSULIN HUMAN NPH SC SCH (08:01)
[2019-09-26] MEDS: INSULIN ASPART 100 UNITS/ML 3 ML PEN SC SCH ×2 (08:03→13:19)
--- NOTE | 2019-09-26 08:04 | Discharge Summary ---
Date of Service September 26, 2019 Admission HPI Per Admitting Provider This is a 53-year-old male that has a history of spinal listhesis L5-S1 in the back and bilateral buttock pain that is been limiting him over the past several years. Unfortunately approximately 7 days ago he had the onset of severe left leg pain involving left buttock anterior thigh extending to the knee. It was incapacitating nature requiring 2 visits to the emergency room. Oral steroids IV narcotics and IV steroids provided little to no relief. Is been unable to sleep. He notes significant strength deficits to the left leg particularly with walking ascending and descending stairs. Denies any loss of bowel bladder control. Discharge Data Consultations 09/22/19 13:29 Consult Anesthesiology Routine 09/23/19 17:49 Consult Case Management - Discharge Planning Routine Procedures Performed Operation Date: 09/23/19 13:45 Actual Procedures p L3-S1 Decompression, Fusion with Instrumentation L5-S1with bone morphogenic proten and osteoamp allograft, interbody cage L5-S1(Not Applicable) - Jay Suggs, Hospital Course (1) Acute left lumbar radiculopathy: Patient is a 53-year-old male with history physical examination regarding images consistent with the above diagnosis. For this reason he was brought to the operating room and underwent above-mentioned procedure. This performed Dr. Suggs under general anesthesia. Left the operating room with a TOMMY drain in place and was transferred to PACU in stable condition. Is then transferred to the orthopedic floor. He is placed on GI DVT prophylaxis and pain control measures. Throughout his hospital course his calves remained supple nontender his dressings remain clean dry and intact. He was seen by physical therapy postop day #1 for ambulation and gait training. Today on postop day #4 is deemed safe for home discharge. He was to change his dressing once daily until there is no drainage once there is no drainage he may begin to shower. He is to avoid any full bending at the waist and should not lift anything heavier than 5 to 7 pounds. He was to avoid driving. For follow-up care he was to see us in approximately 2 weeks from his surgical date. He was to call and be seen sooner if he develops any increased pain increased numbness or tingling or drainage from the incision.
== END 2019-09-26 13:37 | disposition home or self-care (01) | DRG 455 ==
LOC: 3N 15:30